=== PATIENT | female | born 1985 | race Caucasian/White ===

== ENCOUNTER 2019-04-12 15:25 | Inpatient (IN) | payer MEDICAID ==
[~2019-04-12] VITALS: Ht 142.2 cm; Wt 65.2 kg
[~2019-04-12 15:25] MED LIST: PNV11TAB PO
[2019-04-12 16:15] VITALS: BMI 32.2
[2019-04-12 16:16] VITALS: Ht 142.2 cm; Wt 65.2 kg
[2019-04-12] MEDS ORDERED: MAGNESIUM SULFATE 4 GM/100 ML 100 ML ONE (17:39)
[2019-04-12] MEDS ORDERED: MAGNESIUM SULFATE 20 GM/500 ML 500 ML IV SCH ×2 (17:39→23:20)
[2019-04-12] MEDS: LACTATED RINGER'S 1,000 ML IV SCH (17:54)
[2019-04-12] MEDS ORDERED: MAGNESIUM SULFATE 4 GM/100 ML 100 ML IV SCH (18:00)
--- NOTE | 2019-04-12 18:36 | TRIAGE ---
OB Triage Datetime Report Generated by CPN: 04/12/2019 18:36 Datetime: 04/12/2019 18:26 Heart Rate Comments: piero rn at bedside attempting to locate fhts x2 Datetime: 04/12/2019 18:05 Assessment Type: Admission Assessment Vaginal Bleeding: None Maternal Assessment Level of Consciousness: Keenly Alert, Responsive DTR's/Clonus: DTRs 2+; No Clonus Headache: Denies Blurred Vision: No Respiratory Effort: Unlabored; Regular Rhythm; Equal Expansion Breath Sounds, Left: Clear and Equal Breath Sounds, Right: Clear and Equal Nausea/Vomiting: Denies RUQ Epigastric Pain: Denies Lower Extremities Edema: None Degree: None Upper Extremities Edema: None Degree: None Facial Edema: None Fall Risk Assessment History of Falling: (0) No Secondary Diagnosis: (0) No Ambulatory Aid: (0) Bedrest/Nurse Assist IV Therapy: (20) Yes (Annotations: MAGNESIUM SULFATE ) Gait: (0) Normal/Bedrest/Immobile Mental Status: (0) Oriented to Own Ability Fall Score: 20 Fall Risk Score Definition: No Risk: No action required Pain Assessment Pain Scale: 9 Pain Presence: Intermittent Pain Type: Contraction Pain Location: Abdomen; Back Pain Goal: 5 Datetime: 04/12/2019 17:36 Vaginal Exam Dilatation (cms): 0.5 Exam By: DR DELSHAD Datetime: 04/12/2019 16:35 Vaginal Exam Dilatation (cms): 0.0 Effacement (%): 20 Exam By: LALI SIHN Vaginal Bleeding: None Cervix, Consistency: Firm Cervix, Position: Posterior Datetime: 04/12/2019 16:25 Assessment Type: Triage Maternal Assessment Level of Consciousness: Keenly Alert, Responsive DTR's/Clonus: DTRs 2+; No Clonus Headache: Denies Blurred Vision: No Respiratory Effort: Unlabored; Regular Rhythm; Equal Expansion Breath Sounds, Left: Clear and Equal Breath Sounds, Right: Clear and Equal Nausea/Vomiting: Denies RUQ Epigastric Pain: Denies Lower Extremities Edema: None Degree: None Upper Extremities Edema: None Degree: None Facial Edema: None Fall Risk Assessment History of Falling: (0) No Secondary Diagnosis: (0) No Ambulatory Aid: (0) Bedrest/Nurse Assist IV Therapy: (0) No Gait: (0) Normal/Bedrest/Immobile Mental Status: (0) Oriented to Own Ability Fall Score: 0 Fall Risk Score Definition: No Risk: No action required Datetime: 04/12/2019 16:00 Time of Arrival: 04/12/2019 16:00 EGA: 29.5 Arrived By: Ambulatory Arrived From: Home Chief Complaint: UC'S Movement: Present Contractions: Regular Rupture of Membranes: Denies Vaginal Bleeding: None Vaginal Discharge: Denies Recent Sexual Intercouse: Denies Abdominal Trauma: Not Applicable Patient Complaints: Contractions; Cramping Additional Patient Complaints: C/O OF BACK PAIN AND CONTRACTIONS Time Provider Notified: 04/12/2019 16:20 Provider Notified: KARMEN Initial Plan: FFN, VE, IV HYDRATION, BPP, DALIA, PRESENTATION,
--- NOTE | 2019-04-12 19:38 | HP ---
Date/Time of Note Date/Time of Note DATE: 04/12/19 TIME: 19:34 OB - History Hx of Present Chief Complaint: contractions Estimated Due Date: Jun 23, 2019 : 3 Para: 1 Spontaneous : 0 Therapeutic : 1 Care: Good Care Ultrasounds: Normal mid trimester US Obstetrical Complications: Other (twin ) Medical Complications: None Past Family/Social History * Past Medical, Surgical, Family and Obstetric Histories reviewed from chart. OB Admission Exam Physical Exam HEENT: WNL Heart: Rhythm Normal Lungs: Clear, Equal Abdomen: WNL Extremities: Normal Reflexes: Normal Cervical Dilatation: Fingertip Effacement: 75% Station: -1 Membranes: Intact Heart Rate: 140's Decelerations: No Decelerations Contractions on Admission: < 5 Minutes Apart Last 72 hours Lab Results CBC & BMP 04/12/19 16:25 Liver Function Test 04/12/19 16:25 Alanine Aminotransferase (ALT/SGPT) 20 Albumin 3.9 Alkaline Phosphatase 164 H Aspartate Amino Transf (AST/SGOT) 37 Direct Bilirubin 0.00 Total Protein 7.9 OB Assessment/Plan Reason for admission: labor Plan: Other Other plan: Admit IV magnesium sulfate IM betamethasone Perinatology consult Neonatology consult MALIKA DOVE MD Apr 12, 2019 19:38
[2019-04-12] MEDS: BETAMET NA PHOS/AC(6 MG/ML) 2 ML INJ SYG IM SCH (19:58)
[2019-04-12] MEDS: ACETAMINOPHEN 500 MG TAB PO PRN (22:18)
[2019-04-13] MEDS: LACTATED RINGER'S 1,000 ML IV SCH ×2 (05:43→18:39)
[2019-04-13] MEDS: ACETAMINOPHEN 500 MG TAB PO PRN ×2 (05:47→13:08)
[2019-04-13] MEDS: BETAMET NA PHOS/AC(6 MG/ML) 2 ML INJ SYG IM SCH (08:19)
[2019-04-13] MEDS ORDERED: INDOMETHACIN 50 MG PO ONE (12:00)
--- NOTE | 2019-04-13 15:17 | CONS ---
Assessment/Plan Assessment/Plan Hospital Course (Demo Recall) I have spoken to the mother and explained her problems with very premature babies with very low birthweight, respiratory distress syndrome, ventilatory assistance, oxygen therapy and risk for chronic lung disease, risk for intraventricular hemorrhage, long-term neurodevelopmental problems including but not limited to delayed milestones, difficulty with feeding, low intelligence, school problems, cerebral palsy, high risk for intercurrent infections, antibiotic therapy, necrotizing enterocolitis, slow feeding of prematurity, general treatment plan and general procedures done in NICU. I explained to her about survival of 80 to 90% based on when the baby is delivered, NICU stay for about 6 to 8 hours based on when the babies are delivered and answered her questions and address the concerns. I thank you very much for allowing me to take part in the care of this patient, will follow the mother and the baby as I have spent 30 to 35 minutes in reviewing the chart, speaking to the mother, coordinating the care with ancillary services and dictating the consult note and spent most of the time [id number] with the mother to explain problems of prematurity, treatment plan and answering questions. Consultation Date/Type/Reason Admit Date/Time Apr 12, 2019 at 17:47 Date of Consultation: Apr 13, 2019 Type of Consult consult requested by the geriatric social work professor Dr. Witt for labor with twin gestation at 29 and 6/7 weeks. Mom is admitted on 04/12, she is 33 years old, 3, para 1, had one ab ortion, and her EDC is 06/23/2019. Had care in [facility] And denies history of any problems other than twin gestation during . She has been given 1 dose of betamethasone at 1999 on 04/12 and remains on magnesium sulfate. She is due to get her betamethasone at 2000 today. Reason for Consultation labor with twin gestation at 29 and 6/7 weeks. Date/Time of Note DATE: 04/13/19 TIME: 15:12 Past Medical History Home Meds Reported Medications [id number] ( 19) 1 Each Tablet, 1 TAB PO DAILY, TAB 04/12/19 Medications Current Medications Betamethasone Acet/Betameth SodPhos (Celestone Soluspan) 12 mg Q24H IM Last administered on 04/13/19at 08:19; Admin Dose 12 MG; Start 04/12/19 at 18:00; Stop 04/13/19 at 18:01 Lactated Ringer's 1,000 ml @ 75 mls/hr [id number] IV Last administered on 04/13/19at 05:43; Admin Dose 75 MLS/HR; Start 04/12/19 at 17:42 Acetaminophen (Tylenol Tab) 1,000 mg Q6H PRN PO MILD PAIN(1-3)OR ELEVATED TEMP Last administered on 04/13/19at 13:08; Admin Dose 1,000 MG; Start 04/12/19 at 22:00 Magnesium Sulfate 500 ml @ 0 mls/hr Q0M IV Last administered on 04/13/19at 03:51; Admin Dose 2.5 MLS/HR; Start 04/12/19 at 23:20 Indomethacin (Indocin) 25 mg Q6 PO ; Start 04/13/19 at 18:00; Stop 04/17/19 at 18:00 Allergies: Coded Allergies: No Known Allergy (Unverified , 04/12/19) Social History Smoking Status: Never smoker Exam/Review of Systems Exam Vitals Vital Signs Date Temp Pulse Resp B/P (MAP) Pulse Ox O2 O2 Flow FiO2 Time Delivery Rate 04/12/19 98.7 23:03 Intake and Output 04/12/19 04/12/19 04/13/19 1515:00 23:00 07:00 IntakeIntake Total 425 ml 940.2 ml OutputOutput Total 1000 ml BalanceBalance 425 ml -59.8 ml Results Result Diagram: 04/12/19 1625 04/12/19 1625 Results 24hrs Laboratory Tests Test 04/12/19 16:25 04/13/19 05:40 04/13/19 08:27 04/13/19 11:57 White Blood Count 11.7 H Red Blood Count 4.23 Hemoglobin 13.4 Hematocrit 39.4 Mean Corpuscular Volume 93.1 Mean Corpuscular 31.7 Hemoglobin Mean Corpuscular 34.0 Hemoglobin Concent Red Cell Distribution 13.5 Width Platelet Count 271 Mean Platelet Volume 11.2 H Immature Granulocytes % 0.800 H Neutrophils % 76.8 Lymphocytes % 13.6 L Monocytes % 7.3 Eosinophils % 1.2 Basophils % 0.3 Nucleated Red Blood 0.0 Cells % Immature Granulocytes # 0.090 H Neutrophils # 9.0 H Lymphocytes # 1.6 Monocytes # 0.9 Eosinophils # 0.1 Basophils # 0.0 Nucleated Red Blood 0.0 Cells # Prothrombin Time 12.9 Prothrombin Time Ratio 1.0 INR International 0.96 Normalized Ratio Activated 28.6 Partial Thromboplast Time Urine Color YELLOW Urine Clarity CLEAR Urine pH 6.0 Urine Specific [place] 1.004 Urine Ketones NEGATIVE Urine Nitrite NEGATIVE Urine Bilirubin NEGATIVE Urine Urobilinogen NEGATIVE Urine Leukocyte Esterase NEGATIVE Urine Hemoglobin NEGATIVE Urine Glucose NEGATIVE Urine Total Protein NEGATIVE Fibronectin POSITIVE Sodium Level 135 Potassium Level 4.2 Chloride Level 103 Carbon Dioxide Level 21 Anion Gap 11 Blood Urea Nitrogen 9 Creatinine 0.61 Est Glomerular Filtrat > 60 Rate mL/min Glucose Level 70 Calcium Level 9.3 Total Bilirubin 0.6 Direct Bilirubin 0.00 Indirect Bilirubin 0.6 Aspartate Amino 37 Transf (AST/SGOT) Alanine 20 Aminotransferase (ALT/SG PT) Alkaline Phosphatase 164 H Total Protein 7.9 Albumin 3.9 Globulin 4.00 H Albumin/Globulin Ratio 0.97 Magnesium Level 7.0 *H 5.4 *H 6.0 *H Medications Medication Current Medications Betamethasone Acet/Betameth SodPhos (Celestone Soluspan) 12 mg Q24H IM Last administered on 04/13/19 08:19; Admin Dose 12 MG; Start 04/12/19 at 18:00; Stop 04/13/19 at 18:01 Lactated Ringer's 1,000 ml @ 75 mls/hr [id number] IV Last administered on 04/13/19at 05:43; Admin Dose 75 MLS/HR; Start 04/12/19 at 17:42 Acetaminophen (Tylenol Tab) 1,000 mg Q6H PRN PO MILD PAIN(1-3)OR ELEVATED TEMP Last administered on 04/13/19at 13:08; Admin Dose 1,000 MG; Start 04/12/19 at 22:00 Magnesium Sulfate 500 ml @ 0 mls/hr Q0M IV Last administered on 04/13/19at 03:51; Admin Dose 2.5 MLS/HR; Start 04/12/19 at 23:20 Indomethacin (Indocin) 25 mg Q6 PO ; Start 04/13/19 at 18:00; Stop 04/17/19 at 18:00 DAVID MARTINEZ MD Apr 13, 2019 15:17
[2019-04-13] MEDS ORDERED: NIFEdipine 10 MG CAP ONE (18:18)
[2019-04-13] MEDS ORDERED: SENNA/DOCUSATE NA (8.6MG/50MG) TAB ONE (18:25)
[2019-04-13] MEDS ORDERED: SENNA TAB PO ONE ×2 (18:30→23:45)
[2019-04-13] MEDS ORDERED: morphine 2 MG INJ IV PRN (18:30)
[2019-04-13] MEDS: INDOMETHACIN 25 MG PO SCH ×2 (18:34→23:42)
[2019-04-13] MEDS: NIFEdipine 10 MG CAP PO SCH ×2 (18:35→23:45)
--- NOTE | 2019-04-13 19:13 | QN ---
Documentation Comment Patient feels better. No new complaint. Afebrile VSS Strip Appropriate for GA both twins Per recommendation of Dr Solano ([facility]), will d/c magnesium sulfate and give oral nifedipine MALIKA DOVE MD Apr 13, 2019 19:13
--- NOTE | 2019-04-14 00:46 | CONS ---
DATE OF ADMISSION: 04/12/2019 DATE OF CONSULTATION: 04/13/2019 HISTORY OF PRESENT ILLNESS: The patient is with twin intrauterine , monochorionic diamnioti c, currently 29 weeks and 6 days, admitted yesterday with complaint of contractions. Cervical length is about less than 0.5 cm. She was placed on magnesium sulfate; however despite magnesium sulfate, she continues to contract every 8 to 10 minutes which she feels but per Dr. Dove, she has not irwin ged in her cervix. After reviewing the strip, twin A was nonreactive, but very much interrupted and possible ____. PAST MEDICAL HISTORY: Not significant. PAST SURGICAL HISTORY: Not significant. OBSTETRICAL HISTORY: Not significant. VITAL SIGNS: Stable. Physical examination was deferred, heart tone and tocometer. IMPRESSION: Twin intrauterine monochorionic diamniotic at 29 weeks and 6 days with labor on magnesium sulfate, status post betamethasone, continuing to contract with currently nonreas suring Twin A heart tone. There is about ____ between the twins if not 20%, so it is not very significant. Also on her ultrasound, there is maximal vertical pocket ____ is 11 cm, which is doubtf ul since she had an ultrasound in our office on 04/04/2019 when the maximal vertical pockets were con cordant at that time. RECOMMENDATIONS: Discontinue magnesium sulfate to see if the condition of the twin A improves and af ter that if the condition improves, I do recommend starting Procardia on her and not magnesium sulfat e, also small amount of medication probably with morphine IM to relieve the pain and possibly patient can relax and her contractions will be reduced. Please monitor both twins continuously. She is a thin patient and it is not difficult. In terms of delivery if there is a nonreassuring heart tone for twin A or if she does not respo nd to any type of tocolysis; otherwise, we will continue in-house management. Indocin 50 mg p.o., loading 25 every 6 for 4 days would be helpful. Dictated By: KAY NIETO MD ST/NTS Conf#: [id number] DID#: [id number] CC: MALIKA DOVE MD;*EndCC*
[2019-04-14] MEDS: LACTATED RINGER'S 1,000 ML IV SCH (03:26)
[2019-04-14] MEDS: INDOMETHACIN 25 MG PO SCH (05:51)
[2019-04-14] MEDS: NIFEdipine 10 MG CAP PO SCH (05:52)
[2019-04-14] MEDS ORDERED: MAGNESIUM SULFATE 20 GM/500 ML 500 ML IV ONE (08:25)
[2019-04-14] MEDS ORDERED: MAGNESIUM SULFATE 4 GM/100 ML 100 ML ONE (08:25)
[2019-04-14] MEDS ORDERED: MAGNESIUM SULFATE 4 GM/100 ML 100 ML IV ONE (08:30)
[2019-04-14] MEDS ORDERED: MAGNESIUM SULFATE 20 GM/500 ML 500 ML IV SCH (09:00)
[2019-04-14] MEDS ORDERED: CEFAZOLIN 2 GM/50 ML (PMX) 50 ML IVPB ONE (09:32)
[2019-04-14] MEDS ORDERED: AZITHROMYCIN 500MG/NS (PMX) 250 ML ONE (09:47)
[2019-04-14] MEDS ORDERED: DEXAMETHASONE 4 MG/ML 1 ML INJ ONE (09:52)
[2019-04-14] MEDS ORDERED: PHENYLephrine (100 MCG/ML) 10ML SYG ONE (09:52)
[2019-04-14] MEDS ORDERED: FENTAnyl 50 MCG/ML VIAL ONE (09:52)
[2019-04-14] MEDS ORDERED: morphine SULFATE/PF (10 MG/10 ML) INJ ONE (09:52)
--- NOTE | 2019-04-14 09:54 | QN ---
Documentation Comment called for evaluation of patient by her OB VE 2cm short cerxix EFM Twin A good variability B makedly decreas BBV even though not on magnesium sulfate UC's 2-5min pain level 05/16 reported to her OB who rec to start Magnesium 4gm f/b 2gm hrly after D/C REBA Wakefield MD Apr 14, 2019 09:54
[2019-04-14] MEDS ORDERED: ONDANSETRON 4 MG INJ ONE (09:56)
[2019-04-14] MEDS ORDERED: OXYTOCIN 30 UNITS/LR 500 ML IV ONE (09:57)
[2019-04-14] MEDS ORDERED: CEFAZOLIN 2 GM/50 ML (PMX) 50 ML IVPB SCH (10:00)
[2019-04-14] MEDS ORDERED: AZITHROMYCIN 500MG/NS (PMX) 250 ML IVPB ONE (10:00)
--- NOTE | 2019-04-14 10:05 | QN ---
Documentation Comment Patient continues to have contractions with pain level 10 over 10, despite receiving IV magnesium sulfate. Patient does not get any pain relief with IV analgesia. Cervix has changed to 2 cm and very soft. Case discussed with Dr Solano ([facility]) who recommends to deliver the patient by at this time. Patient is counseled and agrees. MALIKA DOVE MD Apr 14, 2019 10:05
[2019-04-14] MEDS ORDERED: METHYLERGONOVINE 0.2 MG TAB ONE (10:32)
--- NOTE | 2019-04-14 11:01 | CONS ---
DATE OF ADMISSION: 04/12/2019 DATE OF CONSULTATION: 04/14/2019 HISTORY OF PRESENT ILLNESS: The patient is a twin intrauterine at 30 weeks, presented with labor. She continued to contract despite magnesium and Procardia and Indocin. She has rece ived betamethasone for over 24 hours. At this point, I do recommend delivery as she is in tremendous amount of pain and is not responding to pain medication, so delivery is recommended. Dictated By: KAY NIETO MD ST/NTS Conf#: [id number] DID#: [id number] CC: MALIKA DOVE MD;*EndCC*
--- NOTE | 2019-04-14 11:23 | OPPN ---
Date/Time of Note Date/Time of Note DATE: 04/14/19 TIME: 11:21 Operative Report Planned Procedure Procedure date Apr 14, 2019 Procedure(s) Primary Performed by Malika Dove MD Hand Blocker: REBA BAUER MD 2nd Hand Blocker none Anesthesiologist: LITO DE ANDA Pre-procedure diagnosis 30 weeks, twins, labor [id number] Anesthesia Type: [id number] spinal Post-Procedure Post-procedure diagnosis Same Findings Live Baby [], Apgars [] and [], weight [], position [], [] presentation []cord. Estimated Blood Loss: other (700 ml) Specimen(s) Placenta Grafts/Implant(s) none Complication(s) none MALIKA DOVE MD Apr 14, 2019 11:23
[2019-04-14] MEDS ORDERED: OXYTOCIN 30 UNITS/LR 500 ML IV SCH ×2 (11:59→14:25)
--- NOTE | 2019-04-14 12:02 | PREAC ---
Date/Time of Note Date/Time of Note DATE: 04/14/19 TIME: 12:01 Anesthesia Eval and Record Evaluation Time Pre-Procedure Interview DATE: 04/14/19 TIME: 09:45 Age 33 Sex female NPO: 8 hrs Preoperative diagnosis iup at 32 weeks with twins Planned procedure primary c section Past Medical History Past Medical History: Includes : Twin Surgery & Anesthesia Issues No known issue Meds Anticoagulation: No Beta Kala within 24 hr: No Reason Beta Kala not given: Pt. not on B-Kala Reported Medications [id number] ( 19) 1 Each Tablet, 1 TAB PO DAILY, TAB 04/12/19 Current Medications Lactated Ringer's 1,000 ml @ 75 mls/hr [id number] IV Last administered on 04/14/19at 03:26; Admin Dose 75 MLS/HR; Start 04/12/19 at 17:42 Acetaminophen (Tylenol Tab) 1,000 mg Q6H PRN PO MILD PAIN(1-3)OR ELEVATED TEMP Last administered on 04/13/19at 13:08; Admin Dose 1,000 MG; Start 04/12/19 at 22:00 Indomethacin (Indocin) 25 mg Q6 PO Last administered on 04/14/19at 05:51; Admin Dose 25 MG; Start 04/13/19 at 18:00; Stop 04/17/19 at 18:00 Morphine Sulfate (morphine) 2 mg Q4H PRN IV SEVERE PAIN LEVEL 7-10 Last administered on 04/14/19at 02:13; Admin Dose 2 MG; Start 04/13/19 at 18:30 Magnesium Sulfate 500 ml @ 50 mls/hr Q10H IV Last administered on 04/14/19at 08:57; Admin Dose 50 MLS/HR; Start 04/14/19 at 09:00 Cefazolin Sodium/ Dextrose 50 ml @ 100 mls/hr ONCE IVPB ; Start 04/14/19 at 10 :00 Meds reviewed: Yes Allergies Coded Allergies: No Known Allergy (Unverified , 04/12/19) Allergies Reviewed: Yes Labs/Studies Labs Reviewed: Reviewed by anesthesiologist Result Diagram: 04/12/19 1381 04/12/19 1627 test: Positive Pre-procedure Exam Last vitals Vital Signs Date Temp Pulse Resp B/P (MAP) Pulse Ox O2 O2 Flow FiO2 Time Delivery Rate 04/12/19 98.7 23:03 Airway: Adequate mouth opening, Adequate thyromental dist Mallampati: Mallampati II Teeth: Normal Lung: Normal Heart: Normal ASA Physical Status ASA physical status: 2 Emergency: None Planned Anesthetic Neuraxial: Spinal Planned Pain Management Sub-arachniod narcotics Pre-operative Attestations Prior to commencing anesthesia and surgery, the patient was re-evaluated, there was verification of: *The patient's identity *The results of appropriate recent lab work and preoperative vital signs *The above evaluation not changing prior to induction *Anesthetic plan, risk benefits, alternative and complications discussed with patient/family; questions answered; patient/family understands, accepts and wishes to proceed. LITO DE ANDA Apr 14, 2019 12:02
--- NOTE | 2019-04-14 12:04 | PAC ---
Date/Time of Note Date/Time of Note DATE: 04/14/19 TIME: 12:04 Post-Anesthesia Notes Post-Anesthesia Note Last documented vital signs Vital Signs Date Temp Pulse Resp B/P (MAP) Pulse Ox O2 O2 Flow FiO2 Time Delivery Rate 04/13/19 98.7 1203 Activity: WNL Respiratory function: WNL Cardiovascular function: WNL Mental status: Baseline Pain reasonably controlled: Yes Hydration appropriate: Yes Nausea/Vomiting absent: Yes LITO DE ANDA Apr 14, 2019 12:04
[2019-04-14] MEDS ORDERED: DIPHENHYDRAMINE 50 MG INJ IV PRN (12:30)
[2019-04-14] MEDS ORDERED: NALOXONE (0.4 MG/ML) INJ IV PRN (12:30)
[2019-04-14] MEDS ORDERED: ONDANSETRON 4 MG INJ IV PRN (12:30)
[2019-04-14] MEDS ORDERED: HYDROmorphONE 0.5 MG/0.5 ML SYG IV PRN ×2 (12:30)
[2019-04-14] MEDS ORDERED: ZOLPIDEM 5 MG TAB PO PRN (12:30)
[2019-04-14] MEDS ORDERED: LACTATED RINGER'S 1,000 ML IV SCH (14:25)
[2019-04-14] MEDS ORDERED: OXYTOCIN 30 UNITS/LR 500 ML IV PRN (14:30)
[2019-04-14] MEDS ORDERED: CARBOPROST 250 MCG INJ IM PRN (14:30)
[2019-04-14] MEDS ORDERED: MISOPROSTOL 200 MCG TAB PR PRN (14:30)
[2019-04-14] MEDS ORDERED: METHYLERGONOVINE 0.2 MG INJ IM PRN (14:30)
[2019-04-14 15:00] VITALS: BP 114/59; PULSE 70; RESP 18
[2019-04-14 16:00] VITALS: BP 103/59; PULSE 78; RESP 16
[2019-04-14] MEDS: KETOROLAC 30 MG INJ IV PRN (16:30)
[2019-04-14 17:00] VITALS: BP 103/55; PULSE 75; RESP 18
[2019-04-14 19:45] VITALS: BP 107/57; PULSE 69; RESP 18
--- NOTE | 2019-04-14 19:45 | OPR ---
DATE OF OPERATION: 04/14/2019 PREOPERATIVE DIAGNOSIS: at 30 weeks with twins with labor. POSTOPERATIVE DIAGNOSIS: at 30 weeks with twins with labor. OPERATION: Primary low transverse section. SURGEON: Malika Armstrong MD HERITAGE CONSULTANT: Emigdio Vizcarra MD ANESTHESIA: Spinal. ANESTHESIOLOGIST: Dr. Diamond DESCRIPTION OF PROCEDURE: The patient was taken to operating room, placed on the operating table in supine position. After successful spinal anesthesia was given, the patient was placed in supine posi tion. The area was prepared and draped in the usual sterile fashion. Spinal anesthesia was tested a nd was satisfactory. Using a scalpel, Pfannenstiel incision was made about 2 fingerbreadths above th e symphysis pubis. The incision was carried down to the fascia. The fascia was incised and extended bilaterally with Poole scissors. Two Kochers were used to separate the fascia from the muscle. The muscle was dissected down in the midline down to peritoneum. The peritoneum was bluntly entered. Us ing a scalpel, a small transverse incision was made in the lower segment of uterus. Upon entering th e uterine cavity, bandage scissors were inserted to extend the incision bilaterally, curved up. Baby was twin A, baby girl was delivered from cephalic position. After suctioning clear of amniotic flui d, the baby was handed off to the team in attendance. Apgars were 7 and 8. Twin B baby gir l was delivered from cephalic presentation. After suctioning clear of amniotic fluid, the baby was h anded off to the team in attendance. Apgars were 8 and 9. The placenta was delivered witho ut difficulty. Uterus was closed with #1 Monocryl continuous locked. After assuring hemostasis, bot h ovaries and 2 tubes were inspected, all looked normal. The peritoneum was closed with 2-0 Vicryl c ontinuous. The fascia was closed with #1 Vicryl continuous in 2 segments. Subcutaneous tissue was r eapproximated with 2-0 plain. The skin was closed with ammy. Estimated blood loss was 700 mL. A ll counts were correct. Dictated By: MALIKA ARMSTRONG MD GD/NTS Conf#: [id number] DID#: [id number]
[2019-04-14] MEDS: SENNA/DOCUSATE NA (8.6MG/50MG) TAB PO SCH (23:27)
[2019-04-15] VITALS: BP 117/63; PULSE 69; RESP 18
[2019-04-15] MEDS: LANOLIN HPA 1 PKT TOP PRN ×2 (02:41→08:07)
[2019-04-15 03:56] VITALS: BP 101/59; PULSE 69; RESP 18
[2019-04-15 07:30] VITALS: BP 109/64; PULSE 71; RESP 16
[2019-04-15] MEDS: SENNA/DOCUSATE NA (8.6MG/50MG) TAB PO SCH ×2 (08:07→21:00)
[2019-04-15] MEDS: KETOROLAC 30 MG INJ IV PRN (08:08)
--- NOTE | 2019-04-15 12:27 | QN ---
Documentation Comment No complaint Afebrile VSS Abdomen soft ND POD #1 Stable Ambulate Advance diet Fe supplement. MALIKA DOVE MD Apr 15, 2019 12:27
[2019-04-15] MEDS: FERROUS SULFATE (EC) 325 MG TAB PO SCH ×2 (13:23→21:00)
[2019-04-15] MEDS: IBUPROFEN 800 MG TAB PO SCH ×2 (13:24→21:00)
[2019-04-15 16:00] VITALS: BP 110/68; PULSE 74; RESP 18
[2019-04-15] MEDS: OXYCODONE/ACETAMINOPHEN (5/325) TAB PO PRN ×2 (16:31→20:44)
[2019-04-15] MEDS: FOLIC ACID 1 MG TAB PO SCH (16:31)
[2019-04-15 21:00] VITALS: BP 108/60; PULSE 68; RESP 18
[2019-04-16 04:03] VITALS: BP 111/63; PULSE 75; RESP 18
[2019-04-16] MEDS: IBUPROFEN 800 MG TAB PO SCH ×3 (05:37→21:57)
[2019-04-16] MEDS: SENNA/DOCUSATE NA (8.6MG/50MG) TAB PO SCH ×2 (09:00→20:59)
[2019-04-16] MEDS: FERROUS SULFATE (EC) 325 MG TAB PO SCH ×3 (11:26→20:59)
[2019-04-16] MEDS: FOLIC ACID 1 MG TAB PO SCH (11:26)
[2019-04-16] MEDS: OXYCODONE/ACETAMINOPHEN (5/325) TAB PO PRN ×3 (11:27→20:09)
[2019-04-16 15:55] VITALS: BP 128/60; PULSE 75; RESP 18
--- NOTE | 2019-04-16 20:03 | QN ---
Documentation Comment No complaint Afebrile VSS Abdomen soft ND POD #2 Stable Continue present care. MALIKA DOVE MD Apr 16, 2019 20:03
[2019-04-16 20:30] VITALS: BP 124/66; PULSE 71; RESP 18
[2019-04-17 00:30] VITALS: BP 127/60; PULSE 65; RESP 20
[2019-04-17] MEDS: OXYCODONE/ACETAMINOPHEN (5/325) TAB PO PRN ×2 (00:37→14:56)
[2019-04-17 04:00] VITALS: BP 111/60; PULSE 75; RESP 18
[2019-04-17] MEDS: IBUPROFEN 800 MG TAB PO SCH ×3 (05:41→22:01)
[2019-04-17] MEDS: SENNA/DOCUSATE NA (8.6MG/50MG) TAB PO SCH ×2 (08:28→22:00)
[2019-04-17] MEDS: FERROUS SULFATE (EC) 325 MG TAB PO SCH ×3 (08:28→22:00)
[2019-04-17] MEDS: FOLIC ACID 1 MG TAB PO SCH (08:28)
[2019-04-17 08:30] VITALS: BP 121/68; PULSE 65; RESP 18
--- NOTE | 2019-04-17 08:48 | QN ---
Documentation Comment No complaint Afebrile VSS Abdomen soft POD #3 Stable Continue present care MALIKA DOVE MD Apr 17, 2019 08:48
[2019-04-17] MEDS ORDERED: DIPHTH/TET/ACEL PERTUSS (ADULT) 0.5 ML VIAL IM* ONE (09:00)
[2019-04-17 15:58] VITALS: BP 121/64; PULSE 82; RESP 18
[2019-04-17] MEDS ORDERED: MAGNESIUM HYDROXIDE 30ML CUP PO ONE (17:30)
[2019-04-17 20:00] VITALS: BP 123/71; PULSE 78; RESP 18
[2019-04-18 04:00] VITALS: BP 135/78; PULSE 76; RESP 20
[2019-04-18] MEDS: IBUPROFEN 800 MG TAB PO SCH ×2 (06:00→13:31)
[2019-04-18 08:28] VITALS: BP 134/76; PULSE 57; RESP 14
[2019-04-18] MEDS: FOLIC ACID 1 MG TAB PO SCH (09:14)
[2019-04-18] MEDS: FERROUS SULFATE (EC) 325 MG TAB PO SCH ×2 (09:14→13:04)
[2019-04-18] MEDS: SENNA/DOCUSATE NA (8.6MG/50MG) TAB PO SCH (09:14)
[2019-04-18 16:39] VITALS: BP 132/69; PULSE 79; RESP 16
--- NOTE | 2019-04-18 20:35 | DS ---
Date/Time of Note Date/Time of Note DATE: 04/18/19 TIME: 20:34 Obstetrical Discharge Record Final Diagnosis Final Diagnosis: delivered Section Section: Primary Primary Indication Twins Complications Tocolytics: Magnesium Sulfate Condition on Discharge Physical Assessment Voiding: Yes Bowel Movement: Yes Breast: Soft, non-tender, Filling Fundus: Firm Abdomen and Incision: Incision intact Calf Tenderness: No Patient Condition: Stable MALIKA DOVE MD Apr 18, 2019 20:35
--- NOTE | 2019-04-19 18:55 | DELSUM ---
Delivery Summary A-C Datetime Report Generated by CPN: 04/19/2019 18:55 DELIVERY PERSONNEL Floor Coverings Salesperson: Orel, Ling MATERNAL INFORMATION Delivery Anesthesia: Spinal Medications in Delivery: see anesthesia records Delivery QBL (ml): 700 Placenta Cultured: No Maternal Complications: None Other Maternal Complications: twin gestation in labor LABOR SUMMARY EDC: 06/23/2019 00:00 No. Babies in Womb: 2 Attempted: No Labor Anesthesia: None LABOR INFORMATION Reason for Induction: Not Applicable Onset of Labor: 04/11/2019 01:00 Group B Beta Strep: Not Done Antibiotics # of Doses: ancef 2 gm x 1, azythromax x 1 Antibiotics Time of Last Dose: 04/14/2019 10:10 Steroids Given: Full Course Reason Steroids Not Administered: Indication MEMBRANES Membranes Rupture Method: Artificial (Annotations: Data stored by CPN on behalf of user) Rupture of Membranes: 04/14/2019 10:27 Length of Rupture (hr): 0.02 Amniotic Fluid Color: Clear Amniotic Fluid Amount: Moderate (Annotations: Data stored by CPN on behalf of user) Amniotic Fluid Odor: None (Annotations: Data stored by CPN on behalf of user) STAGES OF LABOR Stage 3 hr: 0 Stage 3 min: 2 Total Time in Labor hr: 81 Total Time in Labor min: 30 CSECTION DELIVERY Primary Indication: Multiple Gestation CSection Urgency: Non Elective CSection Incidence: Primary Labor: Labor Elective: Nonelective CSection Incision: Lower Uterine Transverse BABY A INFORMATION Infant Delivery Date/Time: 04/14/2019 10:28 Method of Delivery: Born in Route : No : N/A Forceps: N/A Vacuum Extraction: N/A Shoulder Dystocia : N/A SHOULDER DYSTOCIA BABY A Delivery Date/Time: 04/14/2019 10:28 PRESENTATION/POSITION BABY A Presentation: Cephalic Cephalic Presentation: Vertex Breech Presentation: N/A PLACENTA INFORMATION BABY A Placenta Delivery Time : 04/14/2019 10:30 Placenta Method of Delivery: Manual Removal Placenta Status: Delivered SCORES BABY A Heart Rate 1 min: Slow, Below 100 bpm Resp Effort 1 min: Slow, Irregular Reflex Irritability 1 min: Cough/Sneeze/Pulls Away Muscle Tone 1 min: Active Motion Color 1 min: Body [place], Extremit Blue Resuscitation Effort 1 min: Tactile Stimulation; Oxygen; PPV/NCPAP SCORE 1 MIN: 7 Heart Rate 5 min: >100 bpm Resp Effort 5 min: Slow, Irregular Reflex Irritability 5 min: Cough/Sneeze/Pulls Away Muscle Tone 5 min: Active Motion Color 5 min: Body [place], Extremit Blue Resuscitation Effort 5 min: Tactile Stimulation; Oxygen SCORE 5 MIN: 8 INFORMATION BABY A Gestational Age at Delivery: 30.0 Gestational Status: - <34 Weeks Outcome : Liveborn, with signs of life Infant Condition : Stable Infant Sex: Female IDENTIFICATION/MEDS BABY A ID Band Number: [id number] ID Band Location: Right Leg; Right Arm Sensor Applied: No Vitamin K Given : Not Given Erythromycin Given: Not Given WEIGHT/LENGTH BABY A Birthweight (gm): 1810 Infant Weight (lb): 4 Infant Weight (oz): 0 Infant Length (in): 16.00 Length (cm): 40.64 CORD INFORMATION BABY A No. Cord Vessels: 3 Nuchal Cord : N/A Cord Blood Taken: Yes Infant Suction: Mouth; Nose ASSESSMENT BABY A Infant Complications: Other Complications- Other: GA 30 weeks Physical Findings at Delivery: Within Normal Limits Infant Respirations: Grunting Mine Wirer/ALS Called : Yes Infant Care By: JUAN J Abdullahi/Dr Poe Transferred To: NICU BABY B INFORMATION Delivery Date/Time: 04/14/2019 10:29 Method of Delivery : Born in Route : No : N/A Forceps : N/A Vacuum Extraction: N/A Shoulder Dystocia : N/A SHOULDER DYSTOCIA BABY B Infant Delivery Date/Time: 04/14/2019 10:29 PRESENTATION/POSITION BABY B Presentation : Cephalic Cephalic Position : Vertex Breech Position: N/A ROM/PLACENTA INFO BABY B Rupture of Membranes: 04/14/2019 10:27 Length of Rupture (hr): 0.03 Placenta Delivery Time : 04/14/2019 10:30 Placenta Method of Delivery: Manual Removal Placental Status : Delivered SCORES BABY B Heart Rate 1 min: >100 bpm Resp Effort 1 min: Good Cry Reflex Irritability 1 min: Cough/Sneeze/Pulls Away Muscle Tone 1 min: Active Motion Color 1 min: Blue/Pale Resuscitation Effort 1 min: Tactile Stimulation; Oxygen; PPV/NCPAP SCORE 1 MIN: 8 Heart Rate 5 min: >100 bpm Resp Effort 5 min: Good Cry Reflex Irritability 5 min: Cough/Sneeze/Pulls Away Muscle Tone 5 min: Active Motion Color 5 min: Body Mulino, Extremit Blue Resuscitation Effort 5 min: Tactile Stimulation SCORE 5 MIN: 9 INFORMATION BABY B Gestational Age at Delivery: 30.0 Gestational Status : - <34 Weeks Infant Outcome : Liveborn, with signs of life Infant Condition : Stable Sex : Female IDENTIFICATION/MEDS BABY B ID Band Number : [id number] ID Band Location : Right Leg; Right Arm Sensor Applied: No Vitamin K Given : Not Given Erythromycin Given : Not Given WEIGHT/LENGTH BABY B Infant Birthweight (gm): 1235 Infant Weight (lb) : 2 Infant Weight (oz): 12 Infant Length (in): 14.50 Length (cm): 36.83 CORD INFORMATION BABY B No. Cord Vessels : 3 Nuchal Cord : Around Neck x1, Loose Cord Blood Taken : Yes Suction : Mouth; Nose ASSESSMENT BABY B Infant Complications : Decreased Variability Physical Findings at Delivery: Within Normal Limits Respirations : Appears Normal Mine Wirer/ALS Called : Yes Infant Care By : JUAN J Abdullahi/Dr Poe Transfer To: NICU
== END 2019-04-18 18:45 | disposition home or self-care (01) | DRG 787 ==
LOC: L-D 15:25 → OBT 15:25 → L-D 15:26 → OBT 17:47 → L-D 04-13 21:41 → PP1 04-14 14:24
PROVIDERS: ADMIT Obstetrics & Gynecology; ATTEND Obstetrics & Gynecology
PROC: 10D00Z1 Extraction of Products of Conception, Low, Open Approach (ICD-10-PCS; principal; 2019-04-14 10:00)
DX: O60.14X2 Preterm labor third trimester with preterm delivery third trimester, fetus 2 (principal); O26.873 Cervical shortening, third trimester; O60.14X1 Preterm labor third trimester with preterm delivery third trimester, fetus 1; Z37.2 Twins, both liveborn; O30.033 Twin pregnancy, monochorionic/diamniotic, third trimester; Z3A.29 29 weeks gestation of pregnancy
CPT/HCPCS: 76815; 76817; 76818; 80053; 81003; 82731; 83735; 85025; 85610; 85730; 86592; 86850; 86900; 86901; 87086; 87340; 88307; 90715; 93970; 99464; G0463; J0456; J0690; J0702; J1100; J1200; J1885; J2270; J2274; J2370; J2405; J2590; J3010; J3475; J7120